=== PATIENT | male | born 1960 | race Caucasian/White ===

== ENCOUNTER 2018-04-12 07:20 | Day surgery (SDC) | payer BC ==
--- NOTE | 2018-04-12 07:48 | PCM.SN ---
- Free Text/Narrative Note: Pt examined and the chart reviewed. There are no changes to the H+P.
[2018-04-12] MEDS ORDERED: Propofol 200 MG/20 ML SDV IV ONE (08:30)
--- NOTE | 2018-04-12 08:58 | PCM.OPNOTE ---
- General Post-Op/Procedure Note Date of Surgery/Procedure: 04/12/18 Operative Procedure(s): c scope Findings: normal exam Pre Op Diagnosis: hx of colon polyp adenoma Post-Op Diagnosis: nl study Anesthesia Technique: MAC Primary Surgeon: Sly Reed Anesthesia Provider: Pan Rodriguez Pathology: none Complications: None Condition: Good Free Text/Narrative:: see dictation
[2018-04-12] MEDS ORDERED: Lactated Ringers 1,000 ML IV SCH (08:59)
--- NOTE | 2018-04-12 15:03 | OR ---
DATE OF OPERATION: 04/12/2018 SURGEON: Sly Reed MD PROCEDURE PERFORMED: Colonoscopy. PREOPERATIVE DIAGNOSIS: History of ascending colon polyp. POSTOPERATIVE DIAGNOSIS: Normal exam. INDICATIONS FOR PROCEDURE: This is a 58-year-old white male who underwent a screening colonoscopy five years ago. Adenomatous polyp was removed in the ascending colon. It was recommended that he undergo a repeat colonoscopy at this time. DESCRIPTION OF PROCEDURE: After an excellent IV sedation was administered, digital rectal exam was performed. No marked abnormality was noted. Flexible colonoscope was inserted and advanced to the cecum without difficulty. The prep was excellent. The following findings were noted. Ascending colon, unremarkable. Transverse colon, unremarkable. Descending colon, unremarkable. Sigmoid and rectum, unremarkable. Colon was deflated as the scope was removed. The patient tolerated the procedure well and was taken to recovery room in a good condition. RECOMMENDATIONS: Repeat colonoscopy in 10 years. /[id number] /[id number]
== END 2018-04-12 10:08 | disposition home or self-care (01) ==
LOC: FB.SDS 07:20
PROVIDERS: ATTEND Surgery
DX: Z12.11 Encounter for screening for malignant neoplasm of colon (principal); M19.079 Primary osteoarthritis, unspecified ankle and foot; Z86.010 Personal history of colon polyps; Z79.899 Other long term (current) drug therapy
CPT/HCPCS: 45378; J7120; J2704